=== PATIENT | female | born 1970 | race Caucasian/White ===

== ENCOUNTER 2016-09-21 05:30 | Day surgery (SDC) | payer OTHER ==
[~2016-09-21] VITALS: Ht 157.5 cm; Wt 72.0 kg
[~2016-09-21 05:30] MED LIST: COUMADIN5 MG PO; FLEXERIL10 MG PO; KLONOPIN0.5 M1 PO; LOVENOX80 MG/0.8 SC; MULTI-VITAMIN1 EAC4 PO; PERCOCET 5/31 TABLET PO; PROTONIX40 MG PO; VALIUM5 MG PO
[2016-09-21 05:49] VITALS: BP 135/77
[2016-09-21 11:00] VITALS: BP 129/81
[2016-09-21 11:55] VITALS: BP 125/68
[2016-09-21 14:00] VITALS: BP 138/79
== END 2016-09-21 14:35 | disposition home or self-care (01) ==
LOC: SDC 05:30
DX: J34.2 Deviated nasal septum (principal); J34.3 Hypertrophy of nasal turbinates; J30.9 Allergic rhinitis, unspecified; K21.9 Gastro-esophageal reflux disease without esophagitis; Z87.891 Personal history of nicotine dependence; Z79.82 Long term (current) use of aspirin; Z81.1 Family history of alcohol abuse and dependence; Z82.5 Family history of asthma and other chronic lower respiratory diseases; Z88.1 Allergy status to other antibiotic agents
CPT/HCPCS: 84702; J0330; J1100; J1170; J2405; J2765; J3010